=== PATIENT | female | born 1970 | race Caucasian/White ===

== ENCOUNTER 2016-10-29 20:14 | Inpatient (IN) | payer OTHER ==
[~2016-10-29] VITALS: Ht 167.6 cm; Wt 113.7 kg
[~2016-10-29 20:14] MED LIST: ALBU8.5H3 PO; DILT120C77; GABA300C16; HYDR-3612 PO; HYDR-906; LORA-441; LORA-444 PO; METO-448; OMEP20CA9 PO; [UNRECOGNIZED DRUG - CODE]
[2016-10-30 00:36] VITALS: Ht 167.6 cm; Wt 113.7 kg
[2016-10-30] MEDS ORDERED: HYDR8TAB PO (01:28)
[2016-10-30] MEDS ORDERED: CLON-379 PO (01:28)
[2016-10-30] MEDS ORDERED: ZOLP10TA5 PO (01:28)
[2016-10-30] MEDS ORDERED: LAMO150T PO (01:28)
[2016-10-30] MEDS ORDERED: METF500T4 PO (01:28)
[2016-10-30] MEDS ORDERED: LORA1TAB PO (01:28)
[2016-10-30] MEDS ORDERED: ZOC20 PO (01:28)
[2016-10-30] MEDS ORDERED: FOLI-49 PO (01:28)
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
[2016-10-30] MEDS ORDERED: ONDANSETRON 4 MG INJ IV PRN (02:00)
[2016-10-30] MEDS ORDERED: ACETAMINOPHEN 650 MG SUPP PR PRN (02:00)
[2016-10-30] MEDS ORDERED: METOCLOPRAMIDE 10 MG INJ IV PRN (02:00)
[2016-10-30] MEDS ORDERED: HYDROmorphONE 1 MG/ML SYG IV PRN (02:00)
[2016-10-30] MEDS ORDERED: NACL 0.9% 3 ML SYG IV SCH ×2 (02:00)
[2016-10-30] MEDS: SOD CHLORIDE 0.9% 1,000 ML IV SCH ×3 (02:46→17:36)
[2016-10-30] MEDS: LORAZEPAM 2 MG INJ IV SCH ×4 (02:47→20:07)
[2016-10-30 03:25] LABS: CK-MB 1.13 ng/ml (0.0-2.4)
[2016-10-30 03:28] LABS: TROPONIN-I 0.079 ng/ml (0.00-0.12)
[2016-10-30 04:56] VITALS: BP 138/63; RESP 19
[2016-10-30 05:05] LABS: ADD SCAN DIFF NO
[2016-10-30 05:13] LABS: BASOPHIL # 0.1 10^3/ul (0.0-0.1); BASOPHILS % 0.7 % (0.0-2.0); HEMATOCRIT 38.7 % (37.0-47.0); HEMOGLOBIN 12.8 g/dl (12.0-16.0); LYMPHOCYTES % 27.5 % (15.0-51.0); MEAN CORPUSCULAR HEMOGLOBIN 31.6 pg (29.0-33.0); MEAN CORPUSCULAR HGB CONC 33.1 g/dl (32.0-37.0); MEAN CORPUSCULAR VOLUME 95.6 fl (82.0-101.0); MEAN PLATELET VOLUME 10.6 fl (7.4-10.4); MONOCYTE # 0.6 10^3/ul (0.3-0.9); MONOCYTES % 8.1 % (0.0-11.0); NEUTROPHIL # 4.7 10^3/ul (1.6-7.5); NEUTROPHILS % 63.4 % (39.0-77.0); PLATELET COUNT 146 10^3/UL (140-415); RED BLOOD COUNT 4.05 10^6/ul (4.20-5.40); RED CELL DISTRIBUTION WIDTH 14.5 % (11.5-14.5); WHITE BLOOD COUNT 7.4 10^3/ul (4.8-10.8)
[2016-10-30 05:18] LABS: INR 1.12; PROTIME 14.4 Sec (12.2-14.2); PT RATIO 1.1
[2016-10-30] MEDS: PANTOPRAZOLE 40 MG INJ IV SCH (05:21)
[2016-10-30 06:41] LABS: ALBUMIN 3.8 g/dl (3.3-4.9)
[2016-10-30 06:42] LABS: CHLORIDE 97 mmol/L (97-110); SODIUM 143 mmol/L (135-144)
[2016-10-30 06:44] LABS: ALANINE AMINOTRANSFERASE 55 IU/L (13-69); ALBUMIN/GLOBULIN RATIO 1.31; ALKALINE PHOSPHATASE 155 IU/L (42-121); ANION GAP 17 (8-16); ASPARTATE AMINO TRANSFERASE 228 IU/L (15-46); BILIRUBIN,INDIRECT 1.1 mg/dl (0-1.1); BILIRUBIN,TOTAL 1.1 mg/dl (0.2-1.3); BLOOD UREA NITROGEN 19 mg/dl (7-20); CALCIUM 7.1 mg/dl (8.4-10.2); CARBON DIOXIDE 32 mmol/L (21-31); CREATININE 0.99 mg/dl (0.44-1.00); GLUCOSE 100 mg/dl (70-220); MAGNESIUM 1.5 mg/dl (1.7-2.5); TOTAL PROTEIN 6.7 g/dl (6.1-8.1)
[2016-10-30 06:45] LABS: CHOLESTEROL 180 mg/dl (100-200); HDL CHOLESTEROL 87 mg/dl (34-88); TRIGLYCERIDES 141 mg/dl (0-149)
[2016-10-30 06:47] LABS: ETHANOL < 10.0 mg/dl
[2016-10-30 07:55] VITALS: BP 142/74; RESP 18
[2016-10-30] MEDS ORDERED: ENOXAPARIN 40 MG/0.4 ML SYG SC SCH (09:00)
[2016-10-30] MEDS: MULTIVITAMINS 10 ML, THIAMINE 100 MG, FOLIC ACID 1 MG in SOD CHLORIDE 0.9% 1,000 ML IVPB SCH (09:51)
[2016-10-30 11:30] LABS: CK-MB 0.94 ng/ml (0.0-2.4)
[2016-10-30 11:33] LABS: TROPONIN-I 0.057 ng/ml (0.00-0.12)
--- NOTE | 2016-10-30 13:52 | PN ---
Date/Time of Note Date/Time of Note DATE: 10/30/16 TIME: 13:47 Assessment/Plan VTE Prophylaxis VTE Prophylaxis Intervention: SCD's Lines/Catheters IV C[facility]ter Type (from [facility]): Saline Lock Assessment/Plan Chief Complaint/Hosp Course Assessment/Plan 1) Nausea and Vomiting - intractable -likely secondary to alcohol withdrawal Continue Zofran, start patient on clear liquid diet and advance as tolerated 2) alcohol withdrawal - Start Librium - Ativan 1 mg IV Q 4 hours 3) history and current of alcohol dependency -Alcohol cessation has been advised -Patient has been started on banana bag, Ativan and Librium 4) hypokalemia, repleted 5) hypomagnesemia, likely secondary to history of alcoholism, repleted GI prophylaxis, Protonix DVT prophylaxis, ambulation We will continue monitor patient closely for recommendation management treatment as clinical course Plan to discharge home tomorrow Problems: Subjective 24 Hr Interval Summary Free Text/Dictation Patient continues to complain of having abdominal discomfort Positive for nausea without any vomiting Exam/Review of Systems Vital Signs Vitals Vital Signs Date Time Temp Pulse Resp B/P Pulse Ox O2 Delivery O2 Flow Rate FiO2 10/30/16 07:55 97.6 64 18 142/74 96 Intake and Output 10/29/16 10/29/16 10/30/16 15:00 23:00 07:00 Intake Total 200 ml Balance 200 ml Exam General: The patient is morbidly obese, Not in acute distress. HEENT: Atraumatic, normocephalic. The pupils are equal and round . Neck: Supple with full range of motion. Chest: Normal expansion of the thorax during inspiration Lungs: Clear to auscultation bilaterally Heart: Normal S1-S2, Regular rhythm and rate. Abdomen: Soft , nontender, nondistended , bowel sounds are present. Extremities: Normal to inspection, no edema no cyanosis Neurologic: Normal mental status,The patient is awake, alert and oriented . Results Result Diagram: 10/30/16 0439 10/30/16 0439 Results 24 hrs Laboratory Tests Test 10/30/16 02:45 10/30/16 04:39 10/30/16 10:47 Creatine Kinase 273 H 335 H Creatine Kinase Index 0.4 0.3 Creatinine Kinase MB (Mass) 1.13 0.94 Troponin I 0.079 0.057 White Blood Count 7.4 Red Blood Count 4.05 L Hemoglobin 12.8 Hematocrit 38.7 Mean Corpuscular Volume 95.6 Mean Corpuscular Hemoglobin 31.6 Mean Corpuscular Hemoglobin Concent 33.1 Red Cell Distribution Width 14.5 Platelet Count 146 Mean Platelet Volume 10.6 H Neutrophils % 63.4 Lymphocytes % 27.5 Monocytes % 8.1 Eosinophils % 0.0 Basophils % 0.7 Nucleated Red Blood Cells % 0.0 Neutrophils # 4.7 Lymphocytes # 2.0 Monocytes # 0.6 Eosinophils # 0.0 Basophils # 0.1 Nucleated Red Blood Cells # 0.0 Prothrombin Time 14.4 H Prothrombin Time Ratio 1.1 INR International Normalized Ratio 1.12 Sodium Level 143 Potassium Level 3.0 L Chloride Level 97 Carbon Dioxide Level 32 H Anion Gap 17 H Blood Urea Nitrogen 19 Creatinine 0.99 Glucose Level 100 Hemoglobin A1c 5.7 Calcium Level 7.1 L Magnesium Level 1.5 L Total Bilirubin 1.1 Direct Bilirubin 0.00 Indirect Bilirubin 1.1 Aspartate Amino Transf (AST/SGOT) 228 H Alanine Aminotransferase (ALT/SGPT) 55 Alkaline Phosphatase 155 H Total Protein 6.7 Albumin 3.8 Globulin 2.90 Albumin/Globulin Ratio 1.31 Triglycerides Level 141 Cholesterol Level 180 LDL Cholesterol, Calculated 65 HDL Cholesterol 87 Cholesterol/HDL Ratio 2.0 Lipase 99 Thyroid Stimulating Hormone (TSH) 2.810 Ethyl Alcohol Level < 10.0 Medications Medications Current Medications Sodium Chloride (NS) 1,000 ml @ 125 mls/hr Q8H IV Last administered on 02:46; Admin Dose 125 MLS/HR; Start 10/30/16 at 01:54 Ondansetron HCl (Zofran Inj) 4 mg Q6H PRN IV NAUSEA AND/OR VOMITING Last administered on 10/30/16 02:59; Admin Dose 4 MG; Start 10/30/16 at 02:00 Metoclopramide HCl (Reglan) 10 mg Q6H PRN IV NAUSEA AND/OR VOMITING; Start at 02:00 Acetaminophen (Tylenol Supp) 650 mg Q6H PRN MA PAIN LEVEL 1-3 OR FEVER; Start 10/30/16 at 02:00 Hydromorphone HCl (Dilaudid) 0.5 mg Q4H PRN IV SEVERE PAIN LEVEL 7-10; Start at 02:00 Pantoprazole (Protonix Iv) 40 mg DAILY@06 IV Last administered on 10/30/16 05: 21; Admin Dose 40 MG; Start 10/30/16 at 06:00 Enoxaparin Sodium 40 mg 40 mg DAILY SC ; Start 10/30/16 at 09:00 Multivitamins/ Thiamine HCl/ Folic Acid/Sodium Chloride (Mvi-12 Adult/ Vitamin B1/Folic Acid/NS) 1,011.2 ml @ 125 mls/ hr DAILY@09 IVPB Last administered on 10/30/16 09:51; Admin Dose 125 MLS/HR; Start 10/30/16 at 09:00 Lorazepam 1 mg 1 mg Q6H IV Last administered on 10/30/16 13:41; Admin Dose 1 MG; Start 10/30/16 at 02:00 Potassium Chloride/ Magnesium Sulfate/ Dextrose (KCl/Magnesium Sulfate/D5W) 271 ml @ 88.333 mls/ hr ONCE ONCE IVPB ; Start 10/30/16 at 14:00; Stop 10/30/16 at 17:04; Status RENITA GOODWIN MD Oct 30, 2016 13:52
[2016-10-30] MEDS ORDERED: POTASSIUM CHLORIDE IVPB ONE (14:00)
[2016-10-30] MEDS ORDERED: MAGNESIUM SULFATE IVPB ONE (14:00)
[2016-10-30] MEDS ORDERED: DEXTROSE 5% IVPB ONE (14:00)
[2016-10-30 19:58] VITALS: BP 138/79; RESP 16
[2016-10-30] MEDS ORDERED: ZOLPIDEM 5 MG TAB PO PRN ×2 (21:00→21:30)
[2016-10-30] MEDS ORDERED: ACETAMINOPHEN 325 MG TAB PO PRN (21:00)
[2016-10-30] MEDS: CHLORDIAZEPOXIDE 25 MG CAP PO SCH (21:14)
[2016-10-31] MEDS: SOD CHLORIDE 0.9% 1,000 ML IV SCH ×2 (01:56→09:54)
[2016-10-31] MEDS: LORAZEPAM 2 MG INJ IV SCH ×4 (01:56→14:23)
[2016-10-31 04:56] LABS: ADD SCAN DIFF NO
[2016-10-31 05:20] LABS: ALBUMIN 3.8 g/dl (3.3-4.9); POTASSIUM 3.5 mmol/L (3.5-5.1)
[2016-10-31 05:22] LABS: BILIRUBIN,INDIRECT 0.9 mg/dl (0-1.1); BILIRUBIN,TOTAL 0.9 mg/dl (0.2-1.3); CREATININE 0.62 mg/dl (0.44-1.00)
[2016-10-31 05:23] LABS: ALBUMIN/GLOBULIN RATIO 1.4; CALCIUM 7.3 mg/dl (8.4-10.2); TOTAL PROTEIN 6.5 g/dl (6.1-8.1)
[2016-10-31 05:24] LABS: BASOPHIL # 0.1 10^3/ul (0.0-0.1); BASOPHILS % 1.2 % (0.0-2.0); EOSINOPHILS # 0.1 10^3/ul (0.0-0.5); EOSINOPHILS % 2.4 % (0.0-7.0); HEMATOCRIT 40.9 % (37.0-47.0); HEMOGLOBIN 13.4 g/dl (12.0-16.0); LYMPHOCYTES % 34.5 % (15.0-51.0); MAGNESIUM 2.6 mg/dl (1.7-2.5); MEAN CORPUSCULAR HEMOGLOBIN 32.3 pg (29.0-33.0); MEAN CORPUSCULAR HGB CONC 32.8 g/dl (32.0-37.0); MEAN CORPUSCULAR VOLUME 98.6 fl (82.0-101.0); MEAN PLATELET VOLUME 10.7 fl (7.4-10.4); MONOCYTE # 0.4 10^3/ul (0.3-0.9); MONOCYTES % 7.4 % (0.0-11.0); NEUTROPHIL # 3.2 10^3/ul (1.6-7.5); PLATELET COUNT 115 10^3/UL (140-415); RED BLOOD COUNT 4.15 10^6/ul (4.20-5.40); RED CELL DISTRIBUTION WIDTH 13.9 % (11.5-14.5); WHITE BLOOD COUNT 5.9 10^3/ul (4.8-10.8)
[2016-10-31] MEDS: PANTOPRAZOLE 40 MG INJ IV SCH (06:03)
[2016-10-31 08:50] VITALS: BP 140/67; RESP 18
[2016-10-31] MEDS: MULTIVITAMINS 10 ML, THIAMINE 100 MG, FOLIC ACID 1 MG in SOD CHLORIDE 0.9% 1,000 ML IVPB SCH (09:01)
[2016-10-31] MEDS: CHLORDIAZEPOXIDE 25 MG CAP PO SCH ×2 (09:02→12:09)
--- NOTE | 2016-10-31 10:00 | PDOCDIS ---
Discharge Instructions DIAGNOSIS Discharge Diagnosis: gastritis CONDITION Patient Condition: Good HOME CARE INSTRUCTIONS: Diet Instructions: Low Fat /CholesterolSpecial Diet: stay hydrated; drink 8 glasses of fluids/day ACTIVITY: Activity Restrictions: Do not Drive FOLLOW UP/APPOINTMENTS Appointments Appt -pcp & pyschiatrist -1wk AA referral LAMONTE CRAWFORD MD Oct 31, 2016 10:00
[2016-10-31] MEDS ORDERED: Thiamine PO (10:03)
[2016-10-31] MEDS ORDERED: PANT40TA4 PO (10:03)
[2016-10-31] MEDS ORDERED: CHLO25CA9 PO (10:03)
--- NOTE | 2016-10-31 10:56 | DS ---
DATE OF ADMISSION: 10/30/2016 DATE OF DISCHARGE: 10/31/2016 PRIMARY CARE PHYSICIAN: Unknown PRE OWNED SALES MANAGER: Social Service. DIAGNOSIS ON ADMISSION: Gastritis. DIAGNOSES ON DISCHARGE: 1. Gastritis. 2. Chronic alcohol abuse. 3. Depression. 4. Chronic pain. 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 6. Chronic benzodiazepine dependence. 7. Possible history of asthma. 8. Possible history of seizure disorder. HOSPITAL COURSE: A 46-year-old female admitted with nausea, vomiting, and alcohol dependency. The patient was admitted, evaluated and monitored for gastritis. No seizures during hospital stay. No evidence of toxicity, GI bleed, etc. The patient is presently tolerating diet, and she is stable an d fit for discharge. I will ask her to visit AA again. DISCHARGE PLAN: Home. Follow up with primary and behavioral health in 1 to 2 weeks. DIET: Low fat. ACTIVITY: No driving. DURABLE MEDICAL EQUIPMENT: None. CODE STATUS: FULL. CONDITION: Stable. BARRIERS TO DISCHARGE: None. PENDING TESTS: None. FUNCTIONAL STATUS: The patient is awake, alert, aware of care plan options. ALLERGIES: KEFLEX. LABORATORIES: Sodium 141, potassium 3.5, chloride 99, bicarbonate 28, BUN of 10, creatinine 0.6, gl ucose of 90, calcium of 7.3. Magnesium of 2.6, albumin of 3.7, protein of 6.5, AST and ALT of 162 and 49, alkaline phosphatase of 149, bilirubin 0.9. TSH of 2.8, total cholesterol of 180. Triglyce rides 140, LDL 65, HDL of 87. White cell count of 5.9, hemoglobin and hematocrit of 13 and 40, plat elets of 115. INR 1.1. Urine test pending, she claims negative. STOPPED MEDICATIONS: 1. Metformin. 2. Simvastatin until diet improves. 3. Ambien. CONTINUED MEDICATIONS: 1. Clonidine as needed. 2. Folic acid 1 mg daily. 3. Dilaudid apparently 8 mg 4 times daily as needed. 4. Lamictal 150 at bedtime. 4. Ativan 1 mg every 4 hours as needed. ALTERED MEDICATIONS: None. NEW MEDICATIONS: 1. Protonix 40 twice daily. 2. Thiamine 100 daily. 3. Librium 50 mg 3 times daily 1 week. Dictated By: LAMONTE VALERIO/NTS Conf#: [id number] [facility]#: [id number]
--- NOTE | 2016-10-31 11:28 | RADRPT ---
Vent Rate: 89 bpm RR Interval: 0 msec VA Interval: 126 msec QRS Duration: 86 msec QT Interval: 428 msec QTC Interval: 520 msec P-R-T [place]: 49 - 29 - -2 degrees Normal sinus rhythm Nonspecific T wave abnormality Prolonged QT Abnormal ECG Electronically Signed By: River Tellez [id number]
[2016-10-31] MEDS ORDERED: PANTOPRAZOLE (EC) 40 MG TAB PO SCH (18:00)
[2016-11-01] MEDS ORDERED: THIAMINE 100 MG TAB PO SCH (09:00)
== END 2016-10-31 15:32 | disposition home or self-care (01) | DRG 392 ==
LOC: PP2 10-30 00:06
PROVIDERS: ADMIT Family Medicine; ATTEND Family Medicine
DX: K29.70 Gastritis, unspecified, without bleeding (principal); G61.0 Guillain-Barre syndrome; Z68.41 Body mass index [BMI] 40.0-44.9, adult; E83.42 Hypomagnesemia; F10.10 Alcohol abuse, uncomplicated; F10.129 Alcohol abuse with intoxication, unspecified; E66.01 Morbid (severe) obesity due to excess calories; E87.6 Hypokalemia; F32.9 Major depressive disorder, single episode, unspecified; G89.29 Other chronic pain; Y90.5 Blood alcohol level of 100-119 mg/100 ml; J45.909 Unspecified asthma, uncomplicated; G40.909 Epilepsy, unspecified, not intractable, without status epilepticus
CPT/HCPCS: 80053; 80061; 80306; 82550; 82553; 83036; 83690; 83735; 84443; 84484; 85025; 85610; 93005; C9113; J1170; J1650; J2060; J2405; J3411; J3475; J7030; J7070